=== PATIENT | female | born 1945 | race Caucasian/White ===

== ENCOUNTER → 2016-10-25 | Day surgery (SDC) | payer MEDICARE ==
[2016-10-18 09:33] VITALS: Ht 163.8 cm; Wt 62.7 kg
[~2016-10-25] VITALS: Ht 163.8 cm; Wt 62.7 kg
[~2016-10-25] MED LIST: ACET-1256 PO; ASPI81TA28 PO; FERR1TAB13 PO; LEVO88TA PO; LIDOCAINE HCL 2% 2 ML VIAL (20MG/ML) ONE; MULT-506 PO; PANT40TA PO; PRAV20TA PO; PROPOFOL IV EMULSION 10 MG/ML 20 ML VIAL IV ONE; SERT50TA PO
[2016-10-25 10:37] VITALS: TEMP 36.7
--- NOTE | 2016-10-25 11:05 | Endo History and Physical ---
History & Physical Date of Service: Oct 25, 2016. Chief Complaint: Iron Deficiency, Anemia Referring Physician: Bev Hayes History of Present Illness Iron deficiency anemia without signs of bleeding. Past Surgical History Hx Cardiac Surgery: No Hx Internal Defibrillator: No Hx Pacemaker: No Hx Abdominal Surgery: Yes (HERNIA- A CHILD,C SECTION) Hx of Implantable Prosthesis: No Hx Post-Op Nausea and Vomiting: No Hx Cancer Surgery: No Hx Thoracic Surgery: No Hx Orthopedic: No Hx Urinary Tract Surgery: No Family History None Social History Smoking Status: Former Smoker Hx Substance Use: No Hx Alcohol Use: No Allergies Coded Allergies: No Known Allergies (Unverified , 10/25/16) Current Medications Reported Home Medications Medications Dose Route/Sig Max Daily Dose Days Date Category Aspirin Ec (Aspirin) 81 Mg Tab 81 Mg PO DAILY 10/25/16 Reported Protonix (Pantoprazole Sodium) 40 Mg Tab 40 Mg PO DAILY 10/25/16 Reported Tylenol (Acetaminophen) 500 Mg Tab 500 Mg PO PRN 10/18/16 Reported Multivitamin (Multivitamins) Tab 1 Tab PO QAM 10/18/16 Reported Kp Ferrous Sulfate (Ferrous Sulfate) 325 Mg Tab 1 Tab PO BID 30 10/18/16 Reported Pravachol (Pravastatin Sodium) 20 Mg Tab 60 Mg PO HS 10/18/16 Reported Zoloft (Sertraline HCl) 50 Mg Tab 50 Mg PO HS 10/18/16 Reported Synthroid (Levothyroxine Sodium) 88 Mcg Tab 1 Tab PO QAM 90 10/18/16 Reported Vital Signs Weight (Kilograms): 62.73 Height (Feet): 5 Height (Inches): 4.5 Date Time Temp Pulse Resp B/P (MAP) Pulse Ox O2 Delivery O2 Flow Rate FiO2 10/25/16 10:37 36.7 65 18 144/55 (84) 94 Room Air Physical Exam General Appearance: WD/WN, no apparent distress Respiratory/Chest: Auscultation: breath sounds normal, no wheezing Cardiovascular: Heart Auscultation: RRR, no murmurs Abdomen: Inspection & Palpation: soft, no tenderness, guarding & rebound Assessment and Plan EGD today.
--- NOTE | 2016-10-25 11:29 | GI REPORT ---
Procedure Date: 10/25/2016 10:58 AM Procedure: Upper GI endoscopy Indications: Iron deficiency anemia Medicines: Propofol per Anesthesia Complications: No immediate complications. Estimated blood loss: None. Estimated Blood Loss: Estimated blood loss: none. Procedure: Pre-Anesthesia Assessment: - Prior to the procedure, a History and Physical was performed, and patient medications, allergies and sensitivities were reviewed. The patient's tolerance of previous anesthesia was reviewed. - ASA Grade Assessment: III - A patient with severe systemic disease. After obtaining informed consent, the endoscope was passed under direct vision. Throughout the procedure, the patient's blood pressure, pulse, and oxygen saturations were monitored continuously. The Scope was introduced through the mouth, and advanced to the third part of the duodenum. Small bowel enteroscopy was deemed necessary. The upper GI endoscopy was accomplished with ease. The patient tolerated the procedure well. Findings: The upper third of the esophagus, middle third of the esophagus and lower third of the esophagus were normal. The Z-line was regular and was found 40 cm from the incisors. A small hiatus hernia was present. The entire examined stomach was normal. Biopsies were taken with a cold forceps for Helicobacter pylori testing. The examined duodenum was normal. Biopsies for histology were taken with a cold forceps for evaluation of celiac disease. Verification of patient identification for the specimens was done by the physician and nurse using the patient's name, date and medical record number. Impression: - Normal upper third of esophagus, middle third of esophagus and lower third of esophagus. - Z-line regular, 40 cm from the incisors. - Small hiatus hernia. - Normal stomach. Biopsied. - Normal examined duodenum. Biopsied. Recommendation: - Await pathology results. - Perform a colonoscopy at appointment to be scheduled. - Discharge patient to home (with escort). Fuad Lerner M.D. Fuad Lerner MD 10/25/2016 11:28:15 AM This report has been signed electronically. Note Initiated On: 10/25/2016 10:58 AM I attest to the content of the Intraoperative Record and orders documented therein, exceptions below
--- NOTE | 2016-10-25 11:32 | Discharge Instructions ---
Endoscopy Patient Instructions Date / Procedure(s) Performed Oct 25, 2016. EGD Allergy Information Coded Allergies: No Known Allergies (Unverified , 10/25/16) Discharge Date / Findings Oct 25, 2016. Small hiatal hernia, biopsies pending Medication Instructions Stopped Medication(s): Ferrous Sulfate stopped 10/18/16 81mg Aspirin 10/10/16 Restart Stopped Medication(s): Restart medications today. Provider Instructions Activity Restrictions - No exercising or heavy lifting for 24 hours. - Do not drink alcohol the day of the procedure. - Do not drive a car or operate machinery until the day after the procedure. - Do not make any important decisions or sign important papers in 24 hours after the procedure. Following Day: - Return to full activity which may include returning to work/school. Diet Start your diet with liquids and light foods (jello, soup, juice, toast). Then eat your usual diet if not nauseated. Treatment For Common After Affects For mild abdominal pain, bloating, or excessive gas: - Rest - Eat lightly - Lie on right side Will arrange repeat colonoscopy and if negative, will proceed with video capsule endoscopy. Follow-Up Information Follow-up with Bev Hayes as scheduled Anesthesia Information What You Should Know You have had a procedure that required some medicine to reduce anxiety and discomfort. This treatment is called moderate sedation. After receiving the treatment, you may be sleepy, but you will be able to breathe on your own. The effects of the treatment may last for several hours. Follow these instructions along with Activity/Diet recommendations noted above: * Do NOT do anything where dizziness or clumsiness would be dangerous. * Rest quietly at home today, then you can be up and about tomorrow. * Have a responsible person stay with you the rest of today. * You may have had an I.V. today. If so, you may take the dressing off later today. Recommendations Call your doctor if: * Trouble breathing * Continuous vomiting for more than 24 hours * Temperature above 101 degrees * Severe abdominal pain or bloating * Pain not relieved by pain medicine ordered * There is increased drainage or redness from any incision * A large amount of rectal bleeding greater than 2-3 tablespoons. (If you had a polyp/s removed or have hemorrhoids, a small amount of blood - from the rectum is to be expected.) * You have any unanswered questions or concerns. IN THE EVENT OF A SERIOUS EMERGENCY, GO TO THE NEAREST EMERGENCY ROOM Your discharge instructions were prepared by provider Fuad Lerner. Patient Instructions Signature Page Megha Wadswotrh Patient (or Guardian) Signature/Date: I have read and understand the instructions given to me by my caregivers. Caregiver/RN/Doctor Signature/Date: The above-named patient and/or guardian has received patient instructions on this date. + Original Patient Signature Page (only) stays with chart. Please make copy for patient.
--- NOTE | 2016-10-25 11:53 | Anesthesiology Progress Note ---
Anesthesia Post Op Note Date & Time Oct 25, 2016 at 11:52 Vital Signs Pain Intensity: 0 Vital Signs Past 12 Hours Date Time Temp Pulse Resp B/P (MAP) Pulse Ox O2 Delivery O2 Flow Rate FiO2 10/25/16 11:42 65 20 135/56 (82) 97 Room Air 10/25/16 11:27 67 18 126/56 (79) 98 Room Air 10/25/16 10:37 36.7 65 18 144/55 (84) 94 Room Air Notes Mental Status: alert / awake / arousable, participated in evaluation Pt Amnestic to Procedure: Yes Nausea / Vomiting: adequately controlled Pain: adequately controlled Airway Patency, RR, SpO2: stable & adequate BP & HR: stable & adequate Hydration State: stable & adequate Anesthetic Complications: no major complications apparent
[2016-10-25 11:59] VITALS: BP 145/82; PULSE 66; O2SAT 98
== END | disposition home or self-care (01) ==
LOC: C.GI 09:40
PROVIDERS: ATTEND Internal Medicine Gastroenterology
DX: K29.80 Duodenitis without bleeding (principal); K29.50 Unspecified chronic gastritis without bleeding; D50.9 Iron deficiency anemia, unspecified; K44.9 Diaphragmatic hernia without obstruction or gangrene; Z87.891 Personal history of nicotine dependence; Z79.82 Long term (current) use of aspirin; Z79.899 Other long term (current) drug therapy

== ENCOUNTER → 2016-11-02 | Day surgery (SDC) | payer MEDICARE ==
[2016-10-27 11:21] VITALS: Ht 163.8 cm; Wt 62.7 kg
[~2016-11-02] VITALS: Ht 163.8 cm; Wt 62.7 kg
[~2016-11-02] MED LIST changes: +SODIUM CHLORIDE 0.9% 500ML 500 ML IV ONE; +SUCCINYLCHOLINE CHLORIDE 20 MG/ML 10 ML VIAL IV ONE
--- NOTE | 2016-11-02 10:20 | Endo History and Physical ---
History & Physical Date of Service: Nov 02, 2016. Chief Complaint: iron deficiency anemia Referring Physician: Dr. Bev Hayes History of Present Illness Iron deficiency anemia Past Surgical History Hx Cardiac Surgery: No Hx Internal Defibrillator: No Hx Pacemaker: No Hx Abdominal Surgery: Yes (HERNIA- A CHILD,C SECTION) Hx Post-Op Nausea and Vomiting: No Hx Cancer Surgery: No Hx Thoracic Surgery: No Hx Orthopedic: No Hx Urinary Tract Surgery: No Family History None Social History Smoking Status: Former Smoker Hx Substance Use: No Hx Alcohol Use: No Allergies Coded Allergies: No Known Allergies (Verified , 11/02/16) Current Medications Reported Home Medications Medications Dose Route/Sig Max Daily Dose Days Date Category Aspirin Ec (Aspirin) 81 Mg Tab 81 Mg PO DAILY 10/25/16 Reported Protonix (Pantoprazole Sodium) 40 Mg Tab 40 Mg PO DAILY 10/25/16 Reported Tylenol (Acetaminophen) 500 Mg Tab 500 Mg PO PRN 10/18/16 Reported Multivitamin (Multivitamins) Tab 1 Tab PO QAM 10/18/16 Reported Kp Ferrous Sulfate (Ferrous Sulfate) 325 Mg Tab 1 Tab PO BID 30 10/18/16 Reported Pravachol (Pravastatin Sodium) 20 Mg Tab 60 Mg PO HS 10/18/16 Reported Zoloft (Sertraline HCl) 50 Mg Tab 50 Mg PO HS 10/18/16 Reported Synthroid (Levothyroxine Sodium) 88 Mcg Tab 1 Tab PO QAM 90 10/18/16 Reported Vital Signs Weight (Kilograms): 62.73 Height (Feet): 5 Height (Inches): 4.5 Date Time Temp Pulse Resp B/P (MAP) Pulse Ox O2 Delivery O2 Flow Rate FiO2 11/02/16 09:44 36.6 71 20 137/67 (90) 98 Room Air Physical Exam General Appearance: WD/WN, no apparent distress Respiratory/Chest: Auscultation: breath sounds normal, no wheezing Cardiovascular: Heart Auscultation: RRR, no murmurs Abdomen: Inspection & Palpation: soft, no tenderness, guarding & rebound Assessment and Plan Cleared for colonoscopy.
--- NOTE | 2016-11-02 11:00 | GI REPORT ---
Procedure Date: 11/02/2016 10:19 AM Procedure: Colonoscopy Indications: Iron deficiency anemia Medicines: Monitored Anesthesia Care Complications: No immediate complications. Estimated blood loss: None. Estimated Blood Loss: Estimated blood loss: none. Procedure: Pre-Anesthesia Assessment: - Prior to the procedure, a History and Physical was performed, and patient medications, allergies and sensitivities were reviewed. The patient's tolerance of previous anesthesia was reviewed. - ASA Grade Assessment: III - A patient with severe systemic disease. After I obtained informed consent, the scope was passed under direct vision. Throughout the procedure, the patient's blood pressure, pulse, and oxygen saturations were monitored continuously. The scope was introduced through the anus and advanced to the terminal ileum, with identification of the appendiceal orifice and IC valve. The colonoscopy was performed with ease. The patient tolerated the procedure well. The quality of the bowel preparation was excellent. The bowel preparation used was split dose MIralax. Findings: Multiple diverticula were found from sigmoid to descending colon. The distal 10 cm of the terminal ileum appeared normal. Impression: - Diverticulosis from sigmoid to descending colon. - No specimens collected. - The colon was otherwise normal to the terminal ileum with retroflexed views of the colon and terminal ileum. Recommendation: - To visualize the small bowel, perform video capsule endoscopy at appointment to be scheduled. Fuad Lerner M.D. Fuad Lerner MD 11/02/2016 10:59:13 AM This report has been signed electronically. Note Initiated On: 11/02/2016 10:19 AM I attest to the content of the Intraoperative Record and orders documented therein, exceptions below
--- NOTE | 2016-11-02 11:18 | Discharge Instructions ---
Endoscopy Patient Instructions Date / Procedure(s) Performed Nov 02, 2016. Colonoscopy Allergy Information Coded Allergies: No Known Allergies (Verified , 11/02/16) Discharge Date / Findings Nov 02, 2016. Diverticulosis Medication Instructions Stopped Medication(s): stopped ASA October 04,iron on 10/31 Restart Stopped Medication(s): Restart medications today, hold ASA Provider Instructions Activity Restrictions - No exercising or heavy lifting for 24 hours. - Do not drink alcohol the day of the procedure. - Do not drive a car or operate machinery until the day after the procedure. - Do not make any important decisions or sign important papers in 24 hours after the procedure. Following Day: - Return to full activity which may include returning to work/school. Diet Start your diet with liquids and light foods (jello, soup, juice, toast). Then eat your usual diet if not nauseated. Treatment For Common After Affects For mild abdominal pain, bloating, or excessive gas: - Rest - Eat lightly - Lie on right side Follow-Up Information Follow-up with Dr. Bev Hayes as scheduled Anesthesia Information What You Should Know You have had a procedure that required some medicine to reduce anxiety and discomfort. This treatment is called moderate sedation. After receiving the treatment, you may be sleepy, but you will be able to breathe on your own. The effects of the treatment may last for several hours. Follow these instructions along with Activity/Diet recommendations noted above: * Do NOT do anything where dizziness or clumsiness would be dangerous. * Rest quietly at home today, then you can be up and about tomorrow. * Have a responsible person stay with you the rest of today. * You may have had an I.V. today. If so, you may take the dressing off later today. Recommendations Call your doctor if: * Trouble breathing * Continuous vomiting for more than 24 hours * Temperature above 101 degrees * Severe abdominal pain or bloating * Pain not relieved by pain medicine ordered * There is increased drainage or redness from any incision * A large amount of rectal bleeding greater than 2-3 tablespoons. (If you had a polyp/s removed or have hemorrhoids, a small amount of blood - from the rectum is to be expected.) * You have any unanswered questions or concerns. IN THE EVENT OF A SERIOUS EMERGENCY, GO TO THE NEAREST EMERGENCY ROOM Your discharge instructions were prepared by provider Fuad Lerner. Patient Instructions Signature Page Megha Wadsworth Patient (or Guardian) Signature/Date: I have read and understand the instructions given to me by my caregivers. Caregiver/RN/Doctor Signature/Date: The above-named patient and/or guardian has received patient instructions on this date. + Original Patient Signature Page (only) stays with chart. Please make copy for patient.
--- NOTE | 2016-11-02 11:18 | Anesthesiology Progress Note ---
Anesthesia Post Op Note Date & Time Nov 02, 2016 at 11:18 Vital Signs Pain Intensity: 0 Vital Signs Past 12 Hours Date Time Temp Pulse Resp B/P (MAP) Pulse Ox O2 Delivery O2 Flow Rate FiO2 11/02/16 11:08 65 20 125/72 (89) 99 Room Air 11/02/16 10:53 69 20 140/63 (88) 98 Room Air 11/02/16 09:44 36.6 71 20 137/67 (90) 98 Room Air Notes Mental Status: alert / awake / arousable, participated in evaluation Pt Amnestic to Procedure: Yes Nausea / Vomiting: adequately controlled Pain: adequately controlled Airway Patency, RR, SpO2: stable & adequate BP & HR: stable & adequate Hydration State: stable & adequate Anesthetic Complications: no major complications apparent
[2016-11-02 11:42] VITALS: BP 139/74; PULSE 74; O2SAT 99
[2016-11-02 12:19] LABS: BASO % 0.5 %; BASO ABS # 0.03 K/uL (0-0.2); EOS % 2.8 %; IG% 0.2 %; LYMPH ABS # 2.11 K/uL (1.2-3.4); MEAN CELL VOLUME 75.3 fL (80-100); MEAN CORPUSCULAR HEMOGLOBIN 22.8 pg (25-34); MEAN CORPUSCULAR HGB CONC 30.3 g/dl (32-36); MEAN PLATELET VOLUME 8.8 fL (7.4-10.4); MONO % 11.3 %; NEUT % 52.2 %; PLATELET COUNT 226 K/uL (130-400); RED BLOOD COUNT 4.38 M/uL (4.2-5.4)
[2016-11-02 12:45] LABS: ANISOCYTOSIS PRESENT; COMPLETE YES; HYPOCHROMIA PRESENT; MICROCYTOSIS PRESENT; TARGET CELLS 1+
== END | disposition home or self-care (01) ==
LOC: C.GI 09:21
PROVIDERS: ATTEND Internal Medicine Gastroenterology
DX: D50.9 Iron deficiency anemia, unspecified (principal); K57.30 Diverticulosis of large intestine without perforation or abscess without bleeding; Z86.73 Personal history of transient ischemic attack (TIA), and cerebral infarction without residual deficits; Z68.23 Body mass index [BMI] 23.0-23.9, adult